=== PATIENT | male | born 1965 | race Caucasian/White ===

== ENCOUNTER 2016-07-03 13:36 | Emergency (ER) | payer MEDICAID ==
[~2016-07-03] VITALS: Wt 100.0 kg
[2016-07-03] MEDS ORDERED: morphine 4 MG/ML VIAL IV STA (15:17)
[2016-07-03] MEDS ORDERED: SOD CHLORIDE 0.9% 1,000 ML IV STA (15:17)
[2016-07-03] MEDS ORDERED: ONDANSETRON 4 MG INJ IV STA (15:17)
--- NOTE | 2016-07-03 15:25 | ERD ---
ER Documentation Chief Complaint Date/Time DATE: 07/03/16 TIME: 15:24 Chief Complaint FEVER AND DYSURIA AND HEMATURIA FOR THE PAST 3 DAYS. HPI 51-year-old male history of obesity otherwise healthy comes in with fever for the past 3 days, as well as associated dysuria and hematuria. Patient reports right-sided flank pain as well, diffuse abdominal pain. No nausea, vomiting or diarrhea. ROS All systems reviewed and are negative except as per history of present illness. Medications Home Meds Active Scripts Hydrocodone/Acetaminophen ([place] 5-325 Tablet) 1 Each Tablet, 1 TAB PO Q6H Y for PAIN, #15 TAB Prov:DINESH CABALLERO PA-C 07/03/16 Cephalexin* (Keflex*) 500 Mg Capsule, 500 MG PO QID for 10 Days, CAP Prov:DINESH CABALLERO PA-C 07/03/16 PMhx/Soc Medical and Surgical Hx: pt denies Medical Hx History of Surgery: Yes (abdominal (trauma)) Hx Alcohol Use: No Hx Substance Use: No Hx Tobacco Use: No Physical Exam Vitals Vital Signs Date Time Temp Pulse Resp B/P Pulse Ox O2 Delivery O2 Flow Rate FiO2 07/03/16 18:51 98.5 92 18 142/90 98 Room Air 07/03/16 13:39 99.1 98 20 150/81 98 Physical Exam General: Well-developed, well-nourished. The patient appears in no acute distress. HEENT: Head is normocephalic, atraumatic. No scleral icterus. Neck: Supple. Nontender. Lungs: Clear to auscultation. Normal air movement. Heart: Regular rate and rhythm. S1 and S2 are normal. No murmurs, gallops, or rubs. Abdomen: Soft, nontender, nondistended. Bowel sounds are normoactive. Extremities: No clubbing or cyanosis. Normal pulses. Moving extremities x 4. No weakness. Neurologic: Alert and oriented 3. No focal deficits. Skin: Normal turgor. No rash or lesions. Result Diagram: 07/03/16 1530 07/03/16 1530 Results 24 hrs Laboratory Tests Test 07/03/16 15:30 Alanine Aminotransferase (ALT/SGPT) 33IU/L Albumin 4.2g/dl Albumin/Globulin Ratio 1.20 Alkaline Phosphatase 100IU/L Anion Gap 18 Aspartate Amino Transf (AST/SGOT) 34IU/L Basophils # 0.010^3/ul Basophils % 0.1% Blood Urea Nitrogen 13mg/dl Calcium Level 9.2mg/dl Carbon Dioxide Level 25mmol/L Chloride Level 101mmol/L Creatinine 0.82mg/dl Direct Bilirubin 0.00mg/dl Eosinophils # 0.110^3/ul Eosinophils % 1.1% Globulin 3.50g/dl Glucose Level 116mg/dl Hematocrit 44.5% Hemoglobin 15.3g/dl Indirect Bilirubin 0.4mg/dl Lipase 41U/L Lymphocytes # 1.210^3/ul Lymphocytes % 12.0% Mean Corpuscular Hemoglobin 31.7pg Mean Corpuscular Hemoglobin Concent 34.4g/dl Mean Corpuscular Volume 92.0fl Mean Platelet Volume 8.3fl Monocytes # 0.510^3/ul Monocytes % 4.7% Neutrophils # 8.210^3/ul Neutrophils % 82.1% Nucleated Red Blood Cells # 0.010^3/ul Nucleated Red Blood Cells % 0.0/100WBC Platelet Count 69521^3/UL Potassium Level 3.9mmol/L Red Blood Count 4.8410^6/ul Red Cell Distribution Width 14.5% Sodium Level 140mmol/L Total Bilirubin 0.4mg/dl Total Protein 7.7g/dl Urine Bacteria MANY Urine Bilirubin NEGATIVE Urine Clarity TURBID Urine Color LT. YELLOW Urine Epithelial Cells FEW Urine Glucose NEGATIVE% Urine Hemoglobin 3+ Urine Ketones TRACE Urine Leukocyte Esterase 2+ Urine Microscopic RBC >50/HPF Urine Microscopic WBC >200/HPF Urine Nitrite POSITIVE Urine Specific [place] 1.025 Urine Total Protein 1+ Urine Urobilinogen 1.0 E.U./dL Urine pH 5.5 White Blood Count 10.010^3/ul Current Medications Medications (Trade) Dose Ordered Sig/Taylor Route PRN Reason Start Time Stop Time Status Last Admin Dose Admin Sodium Chloride (NS) 1,000 ml @ 1,000 mls/hr Q1H STAT IV 07/03/16 15:17 07/03/16 16:16 DC 07/03/16 15:35 Morphine Sulfate (morphine) 4 mg ONCE STAT IV 07/03/16 15:17 07/03/16 15:19 DC 07/03/16 15:35 Ondansetron HCl 4 mg 4 mg ONCE STAT IV 07/03/16 15:17 07/03/16 15:19 DC 07/03/16 15:35 Ceftriaxone Sodium (Rocephin) 50 ml @ 100 mls/hr ONCE ONCE IVPB 07/03/16 16:30 07/03/16 16:59 DC 07/03/16 16:39 PROCEDURE: CT abdomen and pelvis without contrast. CLINICAL INDICATION: Hematuria. Right flank pain. TECHNIQUE: CT scan of the abdomen and pelvis without contrast was performed. Sagittal and coronal reformatted images were obtained from the axial source images. CTDI = 15.23 mGy; DLP = 882.13 mGy-cm COMPARISON: None available. FINDINGS: Visualized lower thorax: The lung bases are clear. There is no evidence for pleural effusion. Liver, gallbladder, pancreas and spleen: There is borderline enlarged and 90 cm with diffuse low attenuation but normal contour. There is no evidence for a liver mass or ductal dilatation. The gallbladder is unremarkable. No common bile duct abnormality is demonstrated. The pancreas is unremarkable. The spleen is normal in size. Adrenal glands and genitourinary system: The adrenal glands are normal bilaterally. The kidneys are normal and size, contour and attenuation with no evidence for masses, calculi or hydronephrosis. The ureters are unremarkable. The fat surrounding the urinary bladder is showing some mild stranding, the bladder is slightly contracted which may explain the wall thickening of 7 mm. No urinary bladder calculus is demonstrated. The prostate gland is enlarged with a volume estimated at 66 cc. The visualized scrotum is unremarkable. Gastrointestinal system: The stomach is normal in caliber with no abnormality of significance. The small bowel is normal in caliber with no ileus, obstruction or wall thickening. The appendix and surrounding fat are within the limits of normal. Diffuse diverticulosis of the descending and sigmoid colon is present. There is no evidence for colitis or diverticulitis. Peritoneum, retroperitoneum, lymph nodes and vessels: The abdominal aorta is normal in caliber. There is trace iliac system atherosclerotic calcification. The inferior vena cava is unremarkable. There is no evidence for adenopathy or mass. There is no ascites. Osseous structures and musculoskeletal findings: There is no fracture, lytic or blastic lesion. Mild spondylosis of the lower lumbar levels is present. There is spondylolysis at L5 with disk narrowing at L5-S1 No muscular abnormality or soft tissue pathology is present. RPTAT:HJJR IMPRESSION: 1. Stranding of the fat surrounding the urinary bladder with mild urinary bladder wall thickening unable to exclude cystitis. 2. Moderate prostatomegaly. 3. No evidence of urinary tract calculi. 4. Diverticulosis of the left hemicolon without diverticulitis. 5. Hepatic steatosis and borderline hepatomegaly. 6. L5 spondylolysis with degenerative disk disease at L5-S1. Physician Salas Date Time Electronically viewed and signed by Denis Cardoza Physician on 07/03/2016 18:29 JR/ Procedures/MDM ED course: Patient IV line established, he was given a fluid bolus of normal saline with morphine 4 mg and Zofran 4 mg IV. Blood and urine were obtained. he was given a dose of rocephin 1g IV. Patient reports to be feeling much better at this time. MDM: 51-year-old male comes in with right-sided flank pain, patient's workup is consistent with pyelonephritis. No evidence of sepsis or renal insufficiency. No evidence of kidney stones, and septic kidney stones. Departure Diagnosis: Primary Impression: Pyelonephritis Condition: Good DINESH CABALLERO PA-C Jul 03, 2016 15:25
[2016-07-03 15:46] LABS: ADD UMIC YES; URINE BILIRUBIN (Dip) NEGATIVE (NEGATIVE); URINE BLOOD (Dip) 3+ (NEGATIVE); URINE COLOR LT. YELLOW (YELLOW); URINE GLUCOSE (Dip) NEGATIVE (NEGATIVE); URINE KETONES (Dip) TRACE (NEGATIVE); URINE LEUKOCYTE ESTERASE (Dip) 2+ (NEGATIVE); URINE NITRITE (Dip) POSITIVE (NEGATIVE); URINE TOTAL PROTEIN (Dip) 1+ (NEGATIVE); URINE UROBILINOGEN (Dip) 1.0 E.U./dL (0.1-1.0)
[2016-07-03 15:50] LABS: BASOPHILS % 0.1 % (0.0-2.0); EOSINOPHILS # 0.1 10^3/ul (0.0-0.5); EOSINOPHILS % 1.1 % (0.0-7.0); HEMATOCRIT 44.5 % (42.0-52.0); HEMOGLOBIN 15.3 g/dl (14.0-18.0); LYMPHOCYTES # 1.2 10^3/ul (0.8-2.9); MEAN CORPUSCULAR HEMOGLOBIN 31.7 pg (29.0-33.0); MEAN CORPUSCULAR HGB CONC 34.4 g/dl (32.0-37.0); MEAN PLATELET VOLUME 8.3 fl (7.4-10.4); MONOCYTE # 0.5 10^3/ul (0.3-0.9); MONOCYTES % 4.7 % (0.0-11.0); NEUTROPHIL # 8.2 10^3/ul (1.6-7.5); NEUTROPHILS % 82.1 % (39.0-77.0); PLATELET COUNT 258 10^3/UL (140-440); RED BLOOD COUNT 4.84 10^6/ul (4.70-6.10); RED CELL DISTRIBUTION WIDTH 14.5 % (11.5-14.5)
[2016-07-03 15:53] LABS: CONDITION 1
[2016-07-03 15:56] LABS: ALBUMIN 4.2 g/dl (3.3-4.9)
[2016-07-03 15:57] LABS: BACTERIA,URINE MANY; POTASSIUM 3.9 mmol/L (3.5-5.1); URINE RBCS >50 /HPF (0)
[2016-07-03 15:59] LABS: ALBUMIN/GLOBULIN RATIO 1.2; BILIRUBIN,INDIRECT 0.4 mg/dl (0-1.1); BILIRUBIN,TOTAL 0.4 mg/dl (0.2-1.3); CREATININE 0.82 mg/dl (0.61-1.24); TOTAL PROTEIN 7.7 g/dl (6.1-8.1)
[2016-07-03 16:00] LABS: CALCIUM 9.2 mg/dl (8.4-10.2)
[2016-07-03] MEDS ORDERED: CEFTRIAXONE 1 GM/50 ML (PMX) 50 ML IVPB ONE (16:30)
--- NOTE | 2016-07-03 18:29 | RADRPT ---
PROCEDURE: CT abdomen and pelvis without contrast. CLINICAL INDICATION: Hematuria. Right flank pain. TECHNIQUE: CT scan of the abdomen and pelvis without contrast was performed. Sagittal and coronal reformatted images were obtained from the axial source images. CTDI = 15.23 mGy; DLP = 882.13 mGy-c m COMPARISON: None available. FINDINGS: Visualized lower thorax: The lung bases are clear. There is no evidence for pleural effusion. Liver, gallbladder, pancreas and spleen: There is borderline enlarged and 90 cm with diffuse low at tenuation but normal contour. There is no evidence for a liver mass or ductal dilatation. The gall bladder is unremarkable. No common bile duct abnormality is demonstrated. The pancreas is unremark able. The spleen is normal in size. Adrenal glands and genitourinary system: The adrenal glands are normal bilaterally. The kidneys are normal and size, contour and attenuation with no evidence for masses, calculi or hydronephrosis. T he ureters are unremarkable. The fat surrounding the urinary bladder is showing some mild stranding, the bladder is slightly contracted which may explain the wall thickening of 7 mm. No urinary bladd er calculus is demonstrated. The prostate gland is enlarged with a volume estimated at 66 cc. The visualized scrotum is unremarkable. Gastrointestinal system: The stomach is normal in caliber with no abnormality of significance. The small bowel is normal in caliber with no ileus, obstruction or wall thickening. The appendix and s urrounding fat are within the limits of normal. Diffuse diverticulosis of the descending and sigmoi d colon is present. There is no evidence for colitis or diverticulitis. Peritoneum, retroperitoneum, lymph nodes and vessels: The abdominal aorta is normal in caliber. The re is trace iliac system atherosclerotic calcification. The inferior vena cava is unremarkable. Th ere is no evidence for adenopathy or mass. There is no ascites. Osseous structures and musculoskeletal findings: There is no fracture, lytic or blastic lesion. Mil d spondylosis of the lower lumbar levels is present. There is spondylolysis at L5 with disk narrowi ng at L5-S1 No muscular abnormality or soft tissue pathology is present. RPTAT:HJJR IMPRESSION: 1. Stranding of the fat surrounding the urinary bladder with mild urinary bladder wall thickening u nable to exclude cystitis. 2. Moderate prostatomegaly. 3. No evidence of urinary tract calculi. 4. Diverticulosis of the left hemicolon without diverticulitis. 5. Hepatic steatosis and borderline hepatomegaly. 6. L5 spondylolysis with degenerative disk disease at L5-S1. Denis Cardoza Physician Date Time Electronically viewed and signed by Denis Cardoza Physician on 07/03/2016 18:29 JR/
[2016-07-03] MEDS ORDERED: HYDR-906 PO (18:38)
[2016-07-03] MEDS ORDERED: CEPH-443 PO (18:38)
[2016-07-03 18:51] VITALS: BP 142/90; PULSE 92; RESP 18; TEMP 98.5
== END 2016-07-03 18:53 | disposition home or self-care (01) ==
LOC: FTE 13:36
DX: N12 Tubulo-interstitial nephritis, not specified as acute or chronic (principal); E66.9 Obesity, unspecified
CPT/HCPCS: 36415; 74176; 80053; 81001; 83690; 85025; 96361; 96365; 96375; J0696; J2270; J2405; J7030; Z7502; 81003